=== PATIENT | female | born 1975 | race Caucasian/White ===

== ENCOUNTER 2017-05-09 09:25 | Emergency (ER) | payer BC ==
[2017-05-09 09:35] VITALS: BP 153/81
[2017-05-09] MEDS ORDERED: predniSONE 20 MG Tab PO ONE (11:33)
[2017-05-09] MEDS ORDERED: Albuterol/Ipratropium 3.0-0.5 MG/3 ML Neb Soln NEB ONE (11:33)
--- NOTE | 2017-05-09 11:39 | EDM.PDOC ---
ED HPI GENERAL MEDICAL PROBLEM - General Chief Complaint: Respiratory Problem Stated Complaint: ASTHMA Time Seen by Provider: 05/09/17 11:22 Source of Information: Reports: Patient History Limitations: Reports: No Limitations - History of Present Illness INITIAL COMMENTS - FREE TEXT/NARRATIVE: Patient is a 41-year-old female with a history of asthma presents ED complaining of wheezing, chest tightness, and cough. Patient states she did fighting a cold for the past couple days. States this has only worsen her asthma. She's been utilizing albuterol breathing treatments, numicort, , and also an albuterol rescue inhaler. Symptoms are gradually getting worse. States her kids have had recent cold-like symptoms exposing her. These cold-like symptoms started this past for the patient. This consists of sinus congestion, cough, runny nose, and mild sore throat. There's been no documented fever or chills present. She denies any nausea/vomiting, abdominal pain, dysuria , or any additional complaints. Treatments WATCH ADJUSTER: Reports: Other (see below) Other Treatments WATCH ADJUSTER: albuterol - Related Data Allergies Allergy/AdvReac Type Severity Reaction Status Date / Time cephalexin monohydrate Allergy Hives Verified 05/09/17 09:30 [From Keflex] NSAIDS (Non-Steroidal Allergy Other Verified 05/09/17 09:30 Anti-Inflamma omeprazole Allergy Headache Verified 05/09/17 09:30 peppermint Allergy Hives Verified 05/09/17 09:30 esomeprazole magnesium AdvReac Headache Verified 05/09/17 09:30 [From Nexium] pseudoephedrine HCl AdvReac Irritabilit Verified 05/09/17 09:30 [From Sudafed] y tramadol HCl [From Ultram] AdvReac Headache Verified 05/09/17 09:30 paper tape Allergy Rash Uncoded 05/09/17 09:30 rye Allergy Hives Uncoded 05/09/17 09:30 walnuts Allergy Hives Uncoded 05/09/17 09:30 Home Meds: Home Meds Albuterol Sulfate [Albuterol Sulfate HFA] 2 inh INH Q4HR PRN 04/29/15 [History] Losartan [Cozaar] 100 mg PO DAILY 04/29/15 [History] Montelukast [Singulair] 10 mg PO DAILY 04/29/15 [History] Vits #93/Iron Fum/FA [ Formula Tablet] 1 tab PO BEDTIME [History] buPROPion [Wellbutrin XL] 300 mg PO DAILY 04/29/15 [History] Cyanocobalamin (Vitamin B12) [Vitamin B12] 1,200 mcg PO BEDTIME 07/06/15 [ History] Potassium Gluconate 99 mg PO BEDTIME 07/06/15 [History] Cetirizine [ZyrTEC] 10 mg PO DAILY PRN 05/09/17 [History] Diclofenac Sodium [Voltaren 1% Gel] 0 gm TOP BID PRN 05/09/17 [History] Melatonin 7 mg PO BEDTIME PRN 05/09/17 [History] Pantoprazole [ProTONIX] 40 mg PO Q48H 05/09/17 [History] Prednisone [IMW: predniSONE] 40 mg PO WITHBREAKFAST #10 tab 05/09/17 [Rx] Sertraline [Zoloft] 50 mg PO DAILY 05/09/17 [History] guaiFEN/Phenyleph/Acetaminophn [Tylenol Cold Head Congest Cplt] 1 each PO ONETIME PRN 05/09/17 [History] tiZANidine [Zanaflex] 4 mg PO BEDTIME PRN 05/09/17 [History] Past Medical History - Past Surgical History Other GI Surgeries/Procedures: GASTRIC SLEEVE SURGERY Musculoskeletal Surgical History: Reports: Shoulder Surgery, Other (See Below) Other Musculoskeletal Surgeries/Procedures:: rotator cuff surgery on her right shoulder Social & Family History - Tobacco Use Smoking Status *Q: Never Smoker - Caffeine Use Caffeine Use: Reports: Coffee - Recreational Drug Use Recreational Drug Use: No ED ROS GENERAL - Review of Systems Review Of Systems: See Below Constitutional: Reports: Chills, Malaise, Decreased Appetite. Denies: Fever HEENT: Reports: Sinus Problem, Throat Pain (Mild, improving). Denies: Ear Pain Respiratory: Reports: Shortness of Breath, Wheezing, Cough. Denies: Pleuritic Chest Pain, Sputum, Hemoptysis Cardiovascular: Reports: Dyspnea on Exertion. Denies: Chest Pain, Palpitations , Syncope GI/Abdominal: Reports: No Symptoms : Reports: No Symptoms Musculoskeletal: Reports: No Symptoms Skin: Denies: Rash Neurological: Reports: No Symptoms ED EXAM, GENERAL - Physical Exam Exam: See Below Exam Limited By: No Limitations General Appearance: Alert, WD/WN, Mild Distress Eye Exam: Bilateral Eye: EOMI, PERRL Ears: Normal External Exam, Normal Canal, Hearing Grossly Normal, Normal TMs Nose: Normal Inspection Throat/Mouth: Normal Inspection, Normal Oropharynx, Normal Voice, No Airway Compromise Neck: Normal Inspection, Supple, Non-Tender, Full Range of Motion. No: Lymphadenopathy (L), Lymphadenopathy (R) Respiratory/Chest: No Respiratory Distress, No Accessory Muscle Use, Chest Non- Tender, Wheezing (Throughout) Cardiovascular: Normal Peripheral Pulses, Regular Rate, Rhythm, No Murmur Peripheral Pulses: 2+: Radial (L) GI/Abdominal: Normal Bowel Sounds, Soft, Non-Tender, No Organomegaly, No Distention Back Exam: Normal Inspection Extremities: Normal Inspection Neurological: Alert, Oriented, CN II-XII Intact, Normal Cognition, No Motor/ Sensory Deficits Psychiatric: Normal Affect, Normal Mood Skin Exam: Warm, Dry, Intact, Normal Color Course - Vital Signs Last Recorded V/S: Last Vital Signs Temp 98.6 F 05/09/17 09:30 Pulse 78 05/09/17 13:23 Resp 16 05/09/17 13:23 BP 153/81 H 05/09/17 09:30 Pulse Ox 100 05/09/17 13:23 - Orders/Labs/Meds Orders: Active Orders 24 hr Category Date Time Status RT Aerosol Therapy [RC] ASDIRECTED Care 05/09/17 11:33 Active Labs: Laboratory Tests 05/09/17 05/09/17 Range/Units 11:59 11:59 WBC 6.13 (3.98-10.04) K/mm3 RBC 3.76 L (3.98-5.22) M/mm3 Hgb 9.5 L (11.2-15.7) gm/L Hct 30.9 L (34.1-44.9) % MCV 82.2 (79.4-94.8) fl MCH 25.3 L (25.6-32.2) pg MCHC 30.7 L (32.2-35.5) g/dl RDW Std Deviation 39.8 (36.4-46.3) fL Plt Count 280 (182-369) K/mm3 MPV 9.1 L (9.4-12.3) fl Neut % (Auto) 51.1 (34.0-71.1) % Lymph % (Auto) 40.0 (19.3-51.7) % [place] % (Auto) 7.2 (4.7-12.5) % Eos % (Auto) 1.0 (0.7-5.8) Baso % (Auto) 0.5 (0.1-1.2) % Neut # (Auto) 3.14 (1.56-6.13) K/mm3 Lymph # (Auto) 2.45 (1.18-3.74) K/mm3 [place] # (Auto) 0.44 H (0.24-0.36) K/mm3 Eos # (Auto) 0.06 (0.04-0.36) K/mm3 Baso # (Auto) 0.03 (0.01-0.08) K/mm3 Sodium 142 (136-145) mEq/L Potassium 3.1 L (3.5-5.1) mEq/L Chloride 107 (98-107) mEq/L Carbon Dioxide 28 (21-32) mEq/L Anion Gap 10.1 (5-15) BUN 14 (7-18) mg/dL Creatinine 0.7 (0.55-1.02) mg/dL Est Cr Clr Drug Dosing 97.01 mL/min Estimated GFR (MDRD) > 60 (>60) mL/min BUN/Creatinine Ratio 20.0 H (14-18) Glucose 85 (74-106) mg/dL Calcium 8.3 L (8.5-10.1) mg/dL Total Bilirubin 0.2 (0.2-1.0) mg/dL AST 40 H (15-37) U/L ALT 50 (14-59) U/L Alkaline Phosphatase 47 (46-116) U/L C-Reactive Protein < 0.2 (<1.0) mg/dL Total Protein 6.8 (6.4-8.2) g/dl Albumin 3.7 (3.4-5.0) g/dl Globulin 3.1 gm/dL Albumin/Globulin Ratio 1.2 (1-2) Meds: Medications Discontinued Medications Generic Name Dose Route Start Last Admin Trade Name Freq PRN Reason Stop Dose Admin Albuterol/Ipratropium 3 ml 05/09/17 11:33 05/09/17 12:10 Duoneb 3.0-0.5 Mg/3 Ml NEB 05/09/17 11:34 3 ml ONETIME ONE Administration Prednisone 40 mg 05/09/17 11:33 05/09/17 12:30 Prednisone PO 05/09/17 11:34 40 mg ONETIME ONE Administration - Re-Assessments/Exams Free Text/Narrative Re-Assessment/Exam: Ordered DuoNeb treatment and prednisone 40 mg by mouth. Patient has a history of asthma with recent exacerbation with viral upper respiratory infection. Will obtain CBC, chem 14, CRP, and a chest x-ray two-view. 05/09/17 12:46Labs reviewed: Sodium 142, potassium 3.1, creatinine 0.7, glucose 85, AST mildly elevated at 40, CRP less than 0.2, white blood cell count 6.13, hemoglobin 9.5 with mcv of 82, no neutrophilia present. Chest x-ray: no acute findings noted. Reviewed with . Final interpretation pending. Reassessment, patient's feeling better with be up above therapies. Departure - Departure Time of Disposition: 13:09 Disposition: Home, Self-Care 01 Condition: Good Clinical Impression: Exacerbation of asthma, Viral upper respiratory tract infection with cough - Discharge Information Prescriptions: Prednisone [IMW: predniSONE] 40 mg PO WITHBREAKFAST #10 tab Instructions: Upper Respiratory Infection, Adult, Ulpp-so-[id number], Shortness of Breath, [id number], Asthma, Adult Referrals: Adam Perez MD [Primary Care Provider] - Forms: ED Department Discharge Additional Instructions: Chest x-ray and lab work did not revealing concerning findings. Hemoglobin did indicate you're anemic with 9.5. MCV was mildly low which indicates is most likely iron deficiency anemia. In addition your potassium was low 3.1. Will have you see your PCP in the next week for reevaluation for root cause of anemia. Eat a banana daily to replenish potassium. Take the prednisone as directed. Utilize albuterol inhaler 1-2 puffs every 4 hours as needed for cough and or shortness of breath. Return to ED as needed for any new or worsening symptoms. - My Orders Last 24 Hours: My Active Orders 05/09/17 11:33 RT Aerosol Therapy [RC] ASDIRECTED - Assessment/Plan Last 24 Hours: My Active Orders 05/09/17 11:33 RT Aerosol Therapy [RC] ASDIRECTED
--- NOTE | 2017-05-09 12:43 | CR ---
Chest: Two views of the chest were obtained. Comparison: Previous chest x-ray of 04/29/15. Heart size and mediastinum are normal. Lungs are clear. Bony structures show slight degenerative change within the spine. Impression: 1. Nothing acute is identified on two-view chest x-ray. Diagnostic code #1
== END 2017-05-09 13:23 | disposition home or self-care (01) ==
LOC: JD.ED 09:25
DX: J45.901 Unspecified asthma with (acute) exacerbation (principal); J06.9 Acute upper respiratory infection, unspecified; Z98.890 Other specified postprocedural states; Z79.899 Other long term (current) drug therapy; Z88.5 Allergy status to narcotic agent; Z91.09 Other allergy status, other than to drugs and biological substances; Z88.1 Allergy status to other antibiotic agents; Z88.8 Allergy status to other drugs, medicaments and biological substances
CPT/HCPCS: 36415; 71020; 80053; 85025; 86140; 94664; 99285; A9270; 99283

== ENCOUNTER 2018-01-04 15:53 | Emergency (ER) | payer BC ==
[2018-01-04 16:02] VITALS: BP 150/88
[2018-01-04] MEDS ORDERED: Sodium Chloride 0.9% 10 ML Syringe FLUSH PRN (16:14)
[2018-01-04] MEDS ORDERED: Sodium Chloride 0.9% 1,000 ML IV ONE ×2 (16:15→18:12)
--- NOTE | 2018-01-04 17:49 | CR ---
Chest: Portable view of the chest was obtained. Comparison: Prior chest x-ray of 05/09/17. Heart size and mediastinum are within normal limits for portable technique. Lungs are clear. Bony structures show previous resection of the distal right clavicle. Impression: 1. Incidental finding. Nothing acute is seen on portable chest x-ray. Diagnostic code #2
--- NOTE | 2018-01-04 17:52 | EDM.PDOC ---
ED HPI GENERAL MEDICAL PROBLEM - General Chief Complaint: Syncope Stated Complaint: [facility] Time Seen by Provider: 01/04/18 15:58 Source of Information: Reports: Patient History Limitations: Reports: No Limitations - History of Present Illness INITIAL COMMENTS - FREE TEXT/NARRATIVE: 42 y/o F with episodes of syncope today. States she's been feeling vaguely ill for the past few days with myalgias and malaise. Today had one episode of diarrhea. While getting up from the toilet felt dizzy then passed out. Doesn't know how long she was out for. Texted her who states she then had repeated episodes of passing out when trying to stand up x 2. These episodes were very brief. He said it seemed like she was stiff but didn't have any tonic /clonic movements. Now feels lightheaded and generally weak. No further diarrhea. No vomiting. No abdominal pain. No chest pain. Minimal cough. No SOB. No rhinorrhea/sore throat. No lower extremity pain/swelling. No recent immobilization. No prior history of similar symptoms. - Related Data Allergies Allergy/AdvReac Type Severity Reaction Status Date / Time cephalexin monohydrate Allergy Hives Verified 01/04/18 16:02 [From Keflex] NSAIDS (Non-Steroidal Allergy Other Verified 01/04/18 16:02 Anti-Inflamma omeprazole Allergy Headache Verified 01/04/18 16:02 peppermint Allergy Hives Verified 01/04/18 16:02 esomeprazole magnesium AdvReac Headache Verified 01/04/18 16:02 [From Nexium] pseudoephedrine HCl AdvReac Irritabilit Verified 01/04/18 16:02 [From Sudafed] y tramadol HCl [From Ultram] AdvReac Headache Verified 01/04/18 16:02 paper tape Allergy Rash Uncoded 01/04/18 16:02 rye Allergy Hives Uncoded 01/04/18 16:02 walnuts Allergy Hives Uncoded 01/04/18 16:02 Home Meds: Home Meds Albuterol Sulfate [Albuterol Sulfate HFA] 2 inh INH Q4HR PRN 04/29/15 [History] Losartan [Cozaar] 100 mg PO DAILY 04/29/15 [History] Montelukast [Singulair] 10 mg PO DAILY 04/29/15 [History] Vits #93/Iron Fum/FA [ Formula Tablet] 1 tab PO BEDTIME [History] buPROPion [Wellbutrin XL] 300 mg PO DAILY 04/29/15 [History] Cyanocobalamin (Vitamin B12) [Vitamin B12] 1,200 mcg PO BEDTIME 07/06/15 [ History] Potassium Gluconate 99 mg PO BEDTIME 07/06/15 [History] Cetirizine [ZyrTEC] 10 mg PO DAILY PRN 05/09/17 [History] Melatonin 7 mg PO BEDTIME PRN 05/09/17 [History] Sertraline [Zoloft] 50 mg PO DAILY 05/09/17 [History] Budesonide [Pulmicort] 2 puff IH DAILY 01/04/18 [History] Imitrex. 1 tab PO ASDIRECTED PRN 01/04/18 [History] Past Medical History Cardiovascular History: Reports: Hypertension Respiratory History: Reports: Asthma Neurological History: Reports: Migraines - Past Surgical History GI Surgical History: Reports: Bariatric Procedure Other GI Surgeries/Procedures: GASTRIC SLEEVE SURGERY Musculoskeletal Surgical History: Reports: Shoulder Surgery, Other (See Below) Other Musculoskeletal Surgeries/Procedures:: rotator cuff surgery on her right shoulder Social & Family History - Tobacco Use Smoking Status *Q: Never Smoker - Caffeine Use Caffeine Use: Reports: Coffee - Recreational Drug Use Recreational Drug Use: No ED ROS GENERAL - Review of Systems Review Of Systems: See Below Constitutional: Reports: Malaise, Weakness, Fatigue. Denies: Fever HEENT: Reports: No Symptoms Respiratory: Denies: Pleuritic Chest Pain Cardiovascular: Denies: Chest Pain Endocrine: Reports: Fatigue GI/Abdominal: Reports: Diarrhea. Denies: Abdominal Pain, Vomiting : Denies: Dysuria Musculoskeletal: Denies: Leg Pain Skin: Reports: No Symptoms Neurological: Reports: Dizziness Psychiatric: Reports: No Symptoms Hematologic/Lymphatic: Reports: No Symptoms Immunologic: Reports: No Symptoms - Physical Exam Exam: See Below Exam Limited By: No Limitations General Appearance: Alert, WD/WN, No Apparent Distress Eye Exam: Bilateral Eye: Normal Inspection Ears: Normal External Exam Nose: Normal Inspection Throat/Mouth: Normal Inspection, Normal Oropharynx, Normal Voice, No Airway Compromise Head Exam: Atraumatic, Normocephalic Neck: Normal Inspection, Supple, Non-Tender, Full Range of Motion Respiratory/Chest: No Respiratory Distress, Lungs Clear, Normal Breath Sounds, No Accessory Muscle Use, Chest Non-Tender Cardiovascular: Normal Peripheral Pulses, Regular Rate, Rhythm, No Edema, No Murmur GI/Abdominal: Soft, Non-Tender, No Distention Neuro Exam (Abbreviated): Alert, Oriented, CN II-XII Intact, Normal Cognition, No Motor/Sensory Deficits Back Exam: Normal Inspection. No: CVA Tenderness (L), CVA Tenderness (R) Extremities: Normal Inspection Psychiatric: Normal Affect, Normal Mood Skin Exam: Warm, Dry, Intact, Normal Color, No Rash Course - Vital Signs Last Recorded V/S: Last Vital Signs Temp 36.9 C 01/04/18 15:58 Pulse 82 01/04/18 15:58 Resp 16 01/04/18 15:58 BP 150/88 H 01/04/18 15:58 Pulse Ox 100 01/04/18 15:58 - Orders/Labs/Meds Orders: Active Orders 24 hr Category Date Time Status EKG 12 Lead [EKG Documentation Completion] [RC] STAT Care 01/04/18 16:13 Active Peripheral IV Care [RC] . DIRECTED Care 01/04/18 16:14 Active Peripheral IV Care [RC] . DIRECTED Care 01/04/18 16:14 Active HCG QUALITATIVE,URINE [URCHEM] Stat Lab 01/04/18 18:10 Ordered UA W/MICROSCOPIC [URIN] Stat Lab 01/04/18 18:10 Ordered Peripheral IV Insertion Adult [OM.PC] Routine Oth 01/04/18 16:13 Ordered Labs: Laboratory Tests 01/04/18 01/04/18 01/04/18 Range/Units 17:10 17:10 17:10 WBC 11.77 H (3.98-10.04) K/mm3 RBC 4.80 (3.98-5.22) M/mm3 Hgb 9.8 L (11.2-15.7) gm/L Hct 33.7 L (34.1-44.9) % MCV 70.2 L (79.4-94.8) fl MCH 20.4 L (25.6-32.2) pg MCHC 29.1 L (32.2-35.5) g/dl RDW Std Deviation 40.9 (36.4-46.3) fL Plt Count 391 H (182-369) K/mm3 MPV 9.2 L (9.4-12.3) fl Neut % (Auto) 81.9 H (34.0-71.1) % Lymph % (Auto) 11.0 L (19.3-51.7) % [place] % (Auto) 6.4 (4.7-12.5) % Eos % (Auto) 0.3 L (0.7-5.8) Baso % (Auto) 0.3 (0.1-1.2) % Neut # (Auto) 9.65 H (1.56-6.13) K/mm3 Lymph # (Auto) 1.29 (1.18-3.74) K/mm3 [place] # (Auto) 0.75 H (0.24-0.36) K/mm3 Eos # (Auto) 0.04 (0.04-0.36) K/mm3 Baso # (Auto) 0.03 (0.01-0.08) K/mm3 Manual Slide Review Abnormal smear D-Dimer, Quantitative (0.19-0.59) mg/L Sodium 147 H (136-145) mEq/L Potassium 3.8 (3.5-5.1) mEq/L Chloride 106 (98-107) mEq/L Carbon Dioxide 27 (21-32) mEq/L Anion Gap 17.8 H (5-15) BUN 11 (7-18) mg/dL Creatinine 0.7 (0.55-1.02) mg/dL Est Cr Clr Drug Dosing 97.87 mL/min Estimated GFR (MDRD) > 60 (>60) mL/min BUN/Creatinine Ratio 15.7 (14-18) Glucose 92 (74-106) mg/dL Calcium 9.3 (8.5-10.1) mg/dL Magnesium 1.9 (1.8-2.4) mg/dl Total Bilirubin 0.3 (0.2-1.0) mg/dL AST 24 (15-37) U/L ALT 23 (14-59) U/L Alkaline Phosphatase 62 (46-116) U/L Troponin I 0.025 (0.00-0.056) ng/mL Total Protein 7.9 (6.4-8.2) g/dl Albumin 4.2 (3.4-5.0) g/dl Globulin 3.7 gm/dL Albumin/Globulin Ratio 1.1 (1-2) Urine Color (Yellow) Urine Appearance (Clear) Urine pH (5.0-8.0) Ur Specific [place] (1.005-1.030) Urine Protein (Negative) Urine Glucose (UA) (Negative) Urine Ketones (Negative) Urine Occult Blood (Negative) Urine Nitrite (Negative) Urine Bilirubin (Negative) Urine Urobilinogen (0.2-1.0) Ur Leukocyte Esterase (Negative) Urine RBC (0-5) /hpf Urine WBC (0-5) /hpf Ur Epithelial Cells (0-5) /hpf Urine Bacteria (FEW) /hpf Urine Mucus (FEW) /hpf Urine HCG, Qual (NEGATIVE) 01/04/18 01/04/18 01/04/18 Range/Units 17:10 18:10 18:10 WBC (3.98-10.04) K/mm3 RBC (3.98-5.22) M/mm3 Hgb (11.2-15.7) gm/L Hct (34.1-44.9) % MCV (79.4-94.8) fl MCH (25.6-32.2) pg MCHC (32.2-35.5) g/dl RDW Std Deviation (36.4-46.3) fL Plt Count (182-369) K/mm3 MPV (9.4-12.3) fl Neut % (Auto) (34.0-71.1) % Lymph % (Auto) (19.3-51.7) % [place] % (Auto) (4.7-12.5) % Eos % (Auto) (0.7-5.8) Baso % (Auto) (0.1-1.2) % Neut # (Auto) (1.56-6.13) K/mm3 Lymph # (Auto) (1.18-3.74) K/mm3 [place] # (Auto) (0.24-0.36) K/mm3 Eos # (Auto) (0.04-0.36) K/mm3 Baso # (Auto) (0.01-0.08) K/mm3 Manual Slide Review D-Dimer, Quantitative 0.54 (0.19-0.59) mg/L Sodium (136-145) mEq/L Potassium (3.5-5.1) mEq/L Chloride (98-107) mEq/L Carbon Dioxide (21-32) mEq/L Anion Gap (5-15) BUN (7-18) mg/dL Creatinine (0.55-1.02) mg/dL Est Cr Clr Drug Dosing mL/min Estimated GFR (MDRD) (>60) mL/min BUN/Creatinine Ratio (14-18) Glucose (74-106) mg/dL Calcium (8.5-10.1) mg/dL Magnesium (1.8-2.4) mg/dl Total Bilirubin (0.2-1.0) mg/dL AST (15-37) U/L ALT (14-59) U/L Alkaline Phosphatase (46-116) U/L Troponin I (0.00-0.056) ng/mL Total Protein (6.4-8.2) g/dl Albumin (3.4-5.0) g/dl Globulin gm/dL Albumin/Globulin Ratio (1-2) Urine Color Light yellow (Yellow) Urine Appearance Clear (Clear) Urine pH 7.5 (5.0-8.0) Ur Specific [place] 1.015 (1.005-1.030) Urine Protein Negative (Negative) Urine Glucose (UA) Negative (Negative) Urine Ketones Negative (Negative) Urine Occult Blood Negative (Negative) Urine Nitrite Negative (Negative) Urine Bilirubin Negative (Negative) Urine Urobilinogen 0.2 (0.2-1.0) Ur Leukocyte Esterase Negative (Negative) Urine RBC 0-5 (0-5) /hpf Urine WBC 0-5 (0-5) /hpf Ur Epithelial Cells 0-5 (0-5) /hpf Urine Bacteria Few (FEW) /hpf Urine Mucus Not seen (FEW) /hpf Urine HCG, Qual Negative (NEGATIVE) Meds: Medications Discontinued Medications Generic Name Dose Route Start Last Admin Trade Name Freq PRN Reason Stop Dose Admin Sodium Chloride 1,000 mls @ 1,000 mls/hr 01/04/18 16:15 01/04/18 17:15 Normal Saline IV 01/04/18 17:14 1,000 mls/hr ONETIME ONE Administration Magnesium Sulfate 2 gm/ Premix 50 mls @ 25 mls/hr 01/04/18 17:55 01/04/18 18: 20 IV 01/04/18 19:54 25 mls/hr ONETIME ONE Administration Sodium Chloride 1,000 mls @ 1,000 mls/hr 01/04/18 18:12 01/04/18 18:39 Normal Saline IV 01/04/18 19:11 1,000 mls/hr ONETIME ONE Administration Sodium Chloride 10 ml 01/04/18 16:14 01/04/18 17:15 Saline Flush FLUSH 10 ml ASDIRECTED PRN Administration Keep Vein Open - Re-Assessments/Exams Free Text/Narrative Re-Assessment/Exam: 01/04/18 17:52 EKG shows mildly prolonged QT interval at 506. No significant ST abnormality. CXR shows normal cardiac silhouette, no infiltrate, no acute abnormality. Labs significant for mildly elevated WBC, not anemic, electrolytes OK, trop neg, d-d neg. On reeval looks well and feeling somewhat better here after fluids. No definite explanation for syncopal episode, possible vaso-vagal, possible dehydration component. She has had normal vital signs throughout her ED stay. Discussed need for f/u and return precautions. 01/04/18 18:49 Departure - Departure Time of Disposition: 20:56 Disposition: Home, Self-Care 01 Clinical Impression: Syncope and collapse - Discharge Information Instructions: Syncope, [id number] Referrals: Adam Perez MD [Primary Care Provider] - Forms: ED Department Discharge Additional Instructions: 1. Drink plenty of fluids. Drink pedialyte or gatorade or similar beverage that contains electrolytes. 2. Follow up with your primary doctor next week when able 3. Return to the Emergency Department if you have any new concerning symptoms, such as chest pain, difficulty breathing, severe abdominal pain, or other concerning symptoms - My Orders Last 24 Hours: My Active Orders 01/04/18 16:13 EKG 12 Lead [EKG Documentation Completion] [RC] STAT Peripheral IV Insertion Adult [OM.PC] Routine 01/04/18 16:14 Peripheral IV Care [RC] . DIRECTED Peripheral IV Care [RC] . DIRECTED 01/04/18 18:10 HCG QUALITATIVE,URINE [URCHEM] Stat UA W/MICROSCOPIC [URIN] Stat - Assessment/Plan Last 24 Hours: My Active Orders 01/04/18 16:13 EKG 12 Lead [EKG Documentation Completion] [RC] STAT Peripheral IV Insertion Adult [OM.PC] Routine 01/04/18 16:14 Peripheral IV Care [RC] . DIRECTED Peripheral IV Care [RC] . DIRECTED 01/04/18 18:10 HCG QUALITATIVE,URINE [URCHEM] Stat UA W/MICROSCOPIC [URIN] Stat
[2018-01-04] MEDS ORDERED: Magnesium Sulfate/Water 2 GM in Premix Bag 1 BAG IV ONE (17:55)
== END 2018-01-04 20:35 | disposition home or self-care (01) ==
LOC: JD.ED 15:53
DX: R55 Syncope and collapse (principal); I10 Essential (primary) hypertension; Z88.1 Allergy status to other antibiotic agents; Z88.5 Allergy status to narcotic agent; Z88.8 Allergy status to other drugs, medicaments and biological substances; Z91.018 Allergy to other foods; Z79.899 Other long term (current) drug therapy
CPT/HCPCS: 36415; 71045; 80053; 81001; 81025; 83735; 84484; 85025; 85379; 93005; 96361; 96365; 96366; 99284; J7040; J7050; 93010; J3475

== ENCOUNTER 2018-06-15 15:42 | Emergency (ER) | payer BC ==
[2018-06-15 16:07] VITALS: BP 150/95
[2018-06-15] MEDS ORDERED: diphenhydrAMINE 50 MG/ML SDV IM ONE (17:04)
[2018-06-15] MEDS ORDERED: Promethazine 25 MG/ML SDV IM ONE (17:04)
[2018-06-15] MEDS ORDERED: Ketorolac 60 MG/2 ML SDV IM ONE (17:04)
[2018-06-15] MEDS ORDERED: Haloperidol Lactate 5 MG/ML SDV IM ONE (18:44)
--- NOTE | 2018-06-15 19:02 | EDM.PDOC ---
ED HPI GENERAL MEDICAL PROBLEM - General Chief Complaint: Headache Stated Complaint: MIGRAINE/NUMBNESS IN FACE/NECK PAIN Time Seen by Provider: 06/15/18 17:02 Source of Information: Reports: Patient History Limitations: Reports: No Limitations - History of Present Illness INITIAL COMMENTS - FREE TEXT/NARRATIVE: 42 year old female presents for evaluation and treatment of a migraine. Reports this has been going on for about 6 days. Reports Monday she was vomiting. Monday she developed a headache. Monday she went to the walk-in clinic. She had a CT scan of her head done. Treated with phenergran and troadol. This resolved her migraine. Reports is started again today. States the pain is to the frontal and temporal area. Rates the migraine as an 8/10. Reports the pain is radiating into the right side of her neck. Rates the neck pain as a 7-8/10. Patient reports current symptoms of a migraine headache, neck pain, photophobia , phonophobia, nausea and vomiting. She is also complaining of numbness across her face starting on the right side but moving to the left side. She denies any fevers, chills, cough, sore throat or ear pain. Patient has a past medical history of migraines. She has been prescribed imitrex for her migraines. Reports since the beginning of the year her migraine have become more frequent. Denies any known trigger for her migraines. States she is under more stress. Patient has been taking imitrex and zofran for hte migraines. She has never seen neurology for her migraines. Other than the CT scan on Monday she has never had any imaigng of her head. PCP is Dr. Deal. Headache Pain Score (Numeric/FACES): 8 - Related Data Allergies Allergy/AdvReac Type Severity Reaction Status Date / Time cephalexin monohydrate Allergy Hives Verified 06/15/18 16:07 [From Keflex] NSAIDS (Non-Steroidal Allergy Other Verified 06/15/18 16:07 Anti-Inflamma omeprazole Allergy Headache Verified 06/15/18 16:07 peppermint Allergy Hives Verified 06/15/18 16:07 esomeprazole magnesium AdvReac Headache Verified 06/15/18 16:07 [From Nexium] pseudoephedrine HCl AdvReac Irritabilit Verified 06/15/18 16:07 [From Sudafed] y tramadol HCl [From Ultram] AdvReac Headache Verified 06/15/18 16:07 paper tape Allergy Rash Uncoded 01/04/18 16:02 rye Allergy Hives Uncoded 01/04/18 16:02 walnuts Allergy Hives Uncoded 01/04/18 16:02 Home Meds: Home Meds Albuterol Sulfate [Albuterol Sulfate HFA] 2 inh INH Q4HR PRN 04/29/15 [History] Losartan [Cozaar] 100 mg PO DAILY 04/29/15 [History] Montelukast [Singulair] 10 mg PO DAILY 04/29/15 [History] Vits #93/Iron Fum/FA [ Formula Tablet] 1 tab PO BEDTIME [History] buPROPion [Wellbutrin XL] 300 mg PO DAILY 04/29/15 [History] Cyanocobalamin (Vitamin B12) [Vitamin B12] 1,200 mcg PO BEDTIME 07/06/15 [ History] Potassium Gluconate 99 mg PO BEDTIME 07/06/15 [History] Cetirizine [ZyrTEC] 10 mg PO DAILY PRN 05/09/17 [History] Melatonin 7 mg PO BEDTIME PRN 05/09/17 [History] Sertraline [Zoloft] 50 mg PO DAILY 05/09/17 [History] Budesonide [Pulmicort] 2 puff IH DAILY 01/04/18 [History] Imitrex. 1 tab PO ASDIRECTED PRN 01/04/18 [History] Past Medical History Cardiovascular History: Reports: Hypertension Respiratory History: Reports: Asthma Neurological History: Reports: Migraines Psychiatric History: Reports: Anxiety, Depression - Past Surgical History GI Surgical History: Reports: Bariatric Procedure Other GI Surgeries/Procedures: GASTRIC SLEEVE SURGERY Musculoskeletal Surgical History: Reports: Shoulder Surgery, Other (See Below) Other Musculoskeletal Surgeries/Procedures:: rotator cuff surgery on her right shoulder Social & Family History - Tobacco Use Smoking Status *Q: Never Smoker Second Hand Smoke Exposure: No - Caffeine Use Caffeine Use: Reports: Coffee, Soda - Recreational Drug Use Recreational Drug Use: No ED ROS GENERAL - Review of Systems Review Of Systems: See Below Constitutional: Denies: Fever, Chills HEENT: Reports: Other (reports phonophobia and photophobia). Denies: Ear Pain, Throat Pain Respiratory: Denies: Cough GI/Abdominal: Reports: Nausea, Vomiting Musculoskeletal: Reports: Neck Pain (right sided) Neurological: Reports: Headache, Numbness (face right sided radiating to the left) - Physical Exam Exam: See Below Exam Limited By: No Limitations General Appearance: Alert, WD/WN, No Apparent Distress Eye Exam: Bilateral Eye: EOMI, Normal Inspection, PERRL Ears: Normal External Exam, Normal Canal, Hearing Grossly Normal, Normal TMs Nose: Normal Inspection Throat/Mouth: Normal Inspection, Normal Lips, Normal Oropharynx, Normal Voice, No Airway Compromise Head Exam: Atraumatic, Normocephalic Neck: Normal Inspection, Supple, Non-Tender, Tender Lateral (right over the SCM) . No: Tender Midline Respiratory/Chest: No Respiratory Distress, Lungs Clear, Normal Breath Sounds Cardiovascular: Normal Peripheral Pulses, Regular Rate, Rhythm, No Murmur Neuro Exam (Abbreviated): Alert, Oriented, CN II-XII Intact, Normal Cognition, Normal Gait, Other (reports sensation on the right of the face but states it is decreased on the right comparent to the left; factorer 5/5 bilaterall, dorsiflexion and plantarflexion 5/5 bilaterally) Psychiatric: Normal Affect, Normal Mood Skin Exam: Warm, Dry, Normal Color Course - Vital Signs Last Recorded V/S: Last Vital Signs Temp 98.4 F 06/15/18 16:00 Pulse 71 06/15/18 16:00 Resp 13 06/15/18 16:00 BP 150/95 H 06/15/18 16:00 Pulse Ox 100 06/15/18 16:00 - Orders/Labs/Meds Meds: Medications Discontinued Medications Generic Name Dose Route Start Last Admin Trade Name Freq PRN Reason Stop Dose Admin Diphenhydramine HCl 50 mg 06/15/18 17:04 06/15/18 17:20 Benadryl IM 06/15/18 17:05 50 mg ONETIME ONE Administration Haloperidol Lactate 5 mg 06/15/18 18:44 06/15/18 18:51 Haldol IM 06/15/18 18:45 5 mg ONETIME ONE Administration Ketorolac Tromethamine 60 mg 06/15/18 17:04 06/15/18 17:19 Toradol IM 09/14/18 17:05 60 mg ONETIME ONE Administration Promethazine HCl 25 mg 06/15/18 17:04 06/15/18 17:20 Phenergan IM 06/15/18 17:05 25 mg ONETIME ONE Administration - Re-Assessments/Exams Free Text/Narrative Re-Assessment/Exam: 06/15/18 18:45 Checked on the patient. She reports significant improvement. Rates the pain as a 3/10 at this point. Concerned the migraine may return again. Will follow migraine protocol and give haldol. 06/15/18 19:28 Checked on the patient. She is sleeping at this time. We will discharge her home. Discharge instructions as documented. Departure - Departure Time of Disposition: 19:30 Disposition: Home, Self-Care 01 Condition: Fair Clinical Impression: Migraine - Discharge Information *PRESCRIPTION DRUG MONITORING PROGRAM REVIEWED*: No *COPY OF PRESCRIPTION DRUG MONITORING REPORT IN PATIENT MALGORZATA: No Instructions: Migraine Headache, [id number] Referrals: Adam Perez MD [Primary Care Provider] - Forms: ED Department Discharge Additional Instructions: Rx for Toradol 1 tab every 6-8 hours as needed. #20 given through inst[facility]eds. Rest. Go home and rest in a dark quiet room. Make sure you are drinking plenty of fluids. A continued to use the Imitrex for migraines. You may use Toradol 1 tab every 6 -8 hours as needed for severe migraines not relieved by [id number] Tylenol or Imitrex. It is not recommended that you use Toradol more than 5 days in a row. Recommend follow-up with your primary care provider within 2 weeks for further management of your migraine. Consider making a migraine journal to help identify any possible triggers. Note anything such as whether, diet or any changes in may of caused a migraine free. Please return to the ER for symptoms change or worsen.
== END 2018-06-15 19:45 | disposition home or self-care (01) ==
LOC: JD.ED 15:42
DX: G43.909 Migraine, unspecified, not intractable, without status migrainosus (principal); I10 Essential (primary) hypertension; J45.909 Unspecified asthma, uncomplicated; F41.9 Anxiety disorder, unspecified; F32.9 Major depressive disorder, single episode, unspecified; Z88.8 Allergy status to other drugs, medicaments and biological substances; Z91.018 Allergy to other foods; Z79.899 Other long term (current) drug therapy
CPT/HCPCS: 96372; 99284; J1200; J1630; J1885; J2550

== ENCOUNTER 2018-10-08 08:06 | Emergency (ER) | payer BC ==
[2018-10-08 08:20] VITALS: BP 166/88
[2018-10-08] MEDS ORDERED: Metoclopramide 10 MG/2 ML SDV IVPUSH ONE (08:22)
[2018-10-08] MEDS ORDERED: Dexamethasone 10 MG/ML SDV IVPUSH ONE (08:23)
[2018-10-08] MEDS ORDERED: HYDROmorphone 1 MG/ML Syringe IVPUSH ONE (08:23)
--- NOTE | 2018-10-08 08:29 | EDM.PDOC ---
ED HPI GENERAL MEDICAL PROBLEM - General Chief Complaint: Headache Stated Complaint: HEADACHE Time Seen by Provider: 10/08/18 08:24 Source of Information: Reports: Patient, Family History Limitations: Reports: No Limitations - History of Present Illness INITIAL COMMENTS - FREE TEXT/NARRATIVE: 42-year-old female presents to the ED with diffuse cervical neck pain rating up in the occipital aspect of her head causing a headache. Patient has a lot of migraine headaches. She states she did have a migraine over the weekend. She still has a very stiff sore neck with very limited range of motion this morning. Woke up with this yesterday and is worse this morning. Specific injuries to the cervical spine with slip fall or injury. This is left her mildly nauseated. Pressure at the base of her skull and limited range of motion of her cervical spine. Mild nausea. Onset: Gradual Onset Date: 10/07/18 (Awoke with stiff sore neck yesterday morning worse today) Duration: Day(s):, Constant, Getting Worse Location: Reports: Head (Headache), Neck (Diffuse stiffness of the neck with very limited range of motion.) Quality: Reports: Ache ( Particularly lateral rotation.) Severity: Moderate Improves with: Reports: None Worsens with: Reports: Rest Context: Denies: Activity, Exercise, Lifting, Sick Contact, Trauma, Other Associated Symptoms: Reports: Headaches, Loss of Appetite. Denies: No Other Symptoms, Confusion, Chest Pain, Cough, cough w sputum, Diaphoresis, Fever/ Chills, Malaise, Nausea/Vomiting, Rash, Seizure, Shortness of Breath, Syncope Treatments [employer]: Reports: Other (see below) Headache Pain Score (Numeric/FACES): 7 - Related Data Allergies Allergy/AdvReac Type Severity Reaction Status Date / Time cephalexin monohydrate Allergy Hives Verified 10/08/18 08:16 [From Keflex] NSAIDS (Non-Steroidal Allergy Other Verified 10/08/18 08:16 Anti-Inflamma omeprazole Allergy Headache Verified 10/08/18 08:16 peppermint Allergy Hives Verified 10/08/18 08:16 esomeprazole magnesium AdvReac Headache Verified 10/08/18 08:16 [From Nexium] pseudoephedrine HCl AdvReac Irritabilit Verified 10/08/18 08:16 [From Sudafed] y tramadol HCl [From Ultram] AdvReac Headache Verified 10/08/18 08:16 paper tape Allergy Rash Uncoded 10/08/18 08:16 rye Allergy Hives Uncoded 10/08/18 08:16 walnuts Allergy Hives Uncoded 10/08/18 08:16 Home Meds: Home Meds Albuterol Sulfate [Albuterol Sulfate HFA] 2 inh INH Q4HR PRN 04/29/15 [History] Losartan [Cozaar] 100 mg PO DAILY 04/29/15 [History] Montelukast [Singulair] 10 mg PO DAILY 04/29/15 [History] Vits #93/Iron Fum/FA [ Formula Tablet] 1 tab PO BEDTIME [History] buPROPion [Wellbutrin XL] 300 mg PO DAILY 04/29/15 [History] Cyanocobalamin (Vitamin B12) [Vitamin B12] 1,200 mcg PO BEDTIME 07/06/15 [ History] Potassium Gluconate 99 mg PO BEDTIME 07/06/15 [History] Cetirizine [ZyrTEC] 10 mg PO DAILY PRN 05/09/17 [History] Melatonin 7 mg PO BEDTIME PRN 05/09/17 [History] Sertraline [Zoloft] 50 mg PO DAILY 05/09/17 [History] Budesonide [Pulmicort] 2 puff IH DAILY 01/04/18 [History] Imitrex. 1 tab PO ASDIRECTED PRN 01/04/18 [History] Ferrous Sulfate [Iron] 325 mg PO DAILY 07/26/18 [History] predniSONE [Deltasone] 20 mg PO BID #12 tablet 10/08/18 [Rx] Past Medical History Cardiovascular History: Reports: Hypertension Respiratory History: Reports: Asthma GROUND HAND History: Reports: Neurological History: Reports: Migraines Psychiatric History: Reports: Anxiety, Depression Hematologic History: Reports: B12 Deficiency, Iron Deficiency - Infectious Disease History Infectious Disease History: Reports: Chicken Pox - Past Surgical History GI Surgical History: Reports: Bariatric Procedure Other GI Surgeries/Procedures: GASTRIC SLEEVE SURGERY Musculoskeletal Surgical History: Reports: Shoulder Surgery, Other (See Below) Other Musculoskeletal Surgeries/Procedures:: rotator cuff surgery on her right shoulder Social & Family History - Family History Family Medical History: Noncontributory - Tobacco Use Smoking Status *Q: Never Smoker - Caffeine Use Caffeine Use: Reports: Coffee, Soda - Living Situation & Occupation Living situation: Reports: Occupation: Employed ED ROS GENERAL - Review of Systems Review Of Systems: See Below Constitutional: Reports: Fatigue. Denies: Fever, Chills, Malaise, Weakness HEENT: Reports: No Symptoms Respiratory: Reports: No Symptoms Cardiovascular: Reports: No Symptoms Endocrine: Reports: Fatigue GI/Abdominal: Reports: Nausea : Reports: No Symptoms Musculoskeletal: Reports: Neck Pain, Back Pain. Denies: Shoulder Pain (Diffuse cervical neck pain rating away down to upper thoracic spine bilaterally.), Arm Pain, Hand Pain (Upper back pain.), Leg Pain, Foot Pain, Joint Pain, Joint Swelling Skin: Reports: No Symptoms Neurological: Reports: Headache. Denies: Confusion, Numbness, Pre-Existing Deficit, Tingling, Trouble Speaking, Difficulty Walking, Change in Speech Psychiatric: Reports: No Symptoms Hematologic/Lymphatic: Reports: No Symptoms Immunologic: Reports: No Symptoms - Physical Exam Exam: See Below Exam Limited By: No Limitations General Appearance: Alert, WD/WN, Mild Distress, Other (Very limited range of motion of her cervical spine.) Eye Exam: Bilateral Eye: Normal Inspection, PERRL Throat/Mouth: Normal Inspection, Normal Lips, Normal Oropharynx Head Exam: Atraumatic, Normocephalic. No: Scalp Lacerations, Scalp Swelling, Scalp Ecchymosis, Scalp Hematoma, Scalp Tenderness, Facial Ecchymosis, Facial Lacerations Neck: Normal Inspection, Limited Range of Motion, Tender Lateral (Very tender laterally particularly C5-C6 facet joints bilaterally worse on the left as compared to the right. She has loss of 15 of forward flexion as well as 10 of extension. She has lost 10-12 of lateral rotation bilaterally.) Respiratory/Chest: No Respiratory Distress, Lungs Clear, Normal Breath Sounds, Chest Non-Tender Neuro Exam (Abbreviated): Alert, Oriented, CN II-XII Intact, Normal Cognition, Normal Gait, No Motor/Sensory Deficits Extremities: Normal Inspection, Normal Range of Motion, Non-Tender, No Pedal Edema Skin Exam: Warm, Dry, Intact, Normal Color, No Rash Course - Vital Signs Last Recorded V/S: Last Vital Signs Temp 36.6 C 10/08/18 08:17 Pulse 71 10/08/18 08:17 Resp BP 166/88 H 10/08/18 08:17 Pulse Ox 99 10/08/18 08:17 - Orders/Labs/Meds Orders: Active Orders 24 hr Category Date Time Status Dextrose 5%-0.9% NaCl [Dextrose 5%-Normal Saline] 1,000 Med 10/08/18 08:30 Active ml IV ASDIRECTED Ketorolac [Toradol] Med 10/08/18 08:30 Active 30 mg IVPUSH ONETIME Medication Orders Dextrose/Sodium Chloride (Dextrose 5%-Normal Saline) 1,000 mls @ 500 mls/hr IV ASDIRECTED CASEY Last Admin: 10/08/18 08:40 Dose: 500 mls/hr Ketorolac Tromethamine (Toradol) 30 mg IVPUSH ONETIME CASEY Last Admin: 10/08/18 08:42 Dose: 30 mg Meds: Medications Generic Name Dose Route Start Last Admin Trade Name Freq PRN Reason Stop Dose Admin Dextrose/Sodium Chloride 1,000 mls @ 500 mls/hr 10/08/18 08:30 10/08/18 08:40 Dextrose 5%-Normal Saline IV 500 mls/hr ASDIRECTED CASEY Administration Ketorolac Tromethamine 30 mg 10/08/18 08:30 10/08/18 08:42 Toradol IVPUSH 30 mg ONETIME CASEY Administration Discontinued Medications Generic Name Dose Route Start Last Admin Trade Name Freq PRN Reason Stop Dose Admin Dexamethasone 10 mg 10/08/18 08:23 10/08/18 08:41 Dexamethasone IVPUSH 10/08/18 08:24 10 mg ONETIME ONE Administration Hydromorphone HCl 0.5 mg 10/08/18 08:23 10/08/18 08:42 Dilaudid IVPUSH 10/08/18 08:24 0.5 mg ONETIME ONE Administration Metoclopramide HCl 7.5 mg 10/08/18 08:22 10/08/18 08:41 Reglan IVPUSH 10/08/18 08:23 7.5 mg ONETIME ONE Administration - Radiology Interpretation Free Text/Narrative:: 42-year-old female presents to the ED with diffuse cervical neck pain which is causing a pressure at the base of her skull and headache. It's different than her usual migraines it's precipitated by cervical neck pain with very limited range of motion. Clinically she has facet joint inflammation C5-C6 bilaterally at the base of her cervical spine which is causing her decreased range of motion. This is likely because of the headache as well. Plan IV D5 normal saline at 500 mils an hour. Will be given Dilaudid 0.5 mg IV with Reglan 7.5 mg IV. Toradol 30 mg IV and dexamethasone 10 mg IV. Plan will be to discharge her home on a short course of prednisone 20 mg twice a day for the next 6 days. - Re-Assessments/Exams Free Text/Narrative Re-Assessment/Exam: 10/08/18 09:22 patient is quite drowsy from the medication but the pressure in her head and neck is much improved. I will discharge her to home as she will go home to sleep for a few hours. I'm going to place her on Deltasone 20 mg twice daily for 6 days with the first tablet due at suppertime tonight. This to relieve the inflammation in her cervical spine. Departure - Departure Time of Disposition: 09:22 Disposition: Home, Self-Care 01 Condition: Fair Clinical Impression: Cervical neck pain with evidence of disc disease Headache Qualifiers: Headache type: unspecified Headache chronicity pattern: acute headache Intractability: not intractable Qualified Code(s): R51 - Headache - Discharge Information *PRESCRIPTION DRUG MONITORING PROGRAM REVIEWED*: Not Applicable *COPY OF PRESCRIPTION DRUG MONITORING REPORT IN PATIENT MALGORZATA: Not Applicable Prescriptions: predniSONE [Deltasone] 20 mg PO BID #12 tablet Referrals: Adam Perez MD [Primary Care Provider] - Forms: ED Department Discharge Additional Instructions: Evaluation the emergency room this morning in regards to a lot of pressure sensation in the back of your head originating from the cervical spine. Clinically there is marked paraspinal muscle spasm coming from the lower facet joints in your neck both sides although slightly worse on the left side as compared to the right. This is precipitated a headache with mild nausea. You're treated in the ED with Reglan 7.5 mg and Toradol 30 mg IV for pain and inflammation. Also Dilaudid 0.5 mg IV for pain relief and headache relief. Also dexamethasone 10 mg IV which will start work in 4-6 hours to relieve inflammation in the cervical spine. Prescription written for Deltasone 20 mg tablets these are to be taken twice daily with initial one taken at suppertime tonight. Usually with breakfast and supper for the next 6 days. May still use Motrin as needed for pain and inflammation. First of care physician if not markedly improved in 6 days time - My Orders Last 24 Hours: My Active Orders 10/08/18 08:30 Dextrose 5%-0.9% NaCl [Dextrose 5%-Normal Saline] 1,000 ml IV ASDIRECTED Ketorolac [Toradol] 30 mg IVPUSH ONETIME - Assessment/Plan Last 24 Hours: My Active Orders 10/08/18 08:30 Dextrose 5%-0.9% NaCl [Dextrose 5%-Normal Saline] 1,000 ml IV ASDIRECTED Ketorolac [Toradol] 30 mg IVPUSH ONETIME
[2018-10-08] MEDS ORDERED: Dextrose 5%-0.9% NaCl 1,000 ML IV SCH (08:30)
[2018-10-08] MEDS ORDERED: Ketorolac 30 MG/ML SDV IVPUSH SCH (08:30)
== END 2018-10-08 09:35 | disposition home or self-care (01) ==
LOC: JD.ED 08:06
DX: M50.90 Cervical disc disorder, unspecified, unspecified cervical region (principal); R51 Headache; I10 Essential (primary) hypertension; F41.9 Anxiety disorder, unspecified; F32.9 Major depressive disorder, single episode, unspecified; Z88.1 Allergy status to other antibiotic agents; Z88.5 Allergy status to narcotic agent; Z91.09 Other allergy status, other than to drugs and biological substances; Z91.018 Allergy to other foods; Z79.899 Other long term (current) drug therapy; Z98.84 Bariatric surgery status
CPT/HCPCS: 96361; 96374; 96375; 99284; J1100; J1170; J1885; J2765; J7042

== ENCOUNTER 2019-09-06 21:05 | Emergency (ER) | payer SELFPAY ==
[2019-09-06 21:43] VITALS: BP 165/85; PULSE 62
[2019-09-06] MEDS ORDERED: LORazepam 2 MG/ML SDV IVPUSH ONE (22:00)
[2019-09-06] MEDS ORDERED: diphenhydrAMINE 50 MG/ML SDV IVPUSH ONE (22:00)
[2019-09-06] MEDS ORDERED: Sodium Chloride 0.9% 1,000 ML IV SCH (22:00)
[2019-09-06] MEDS ORDERED: Ondansetron 4 MG/2 ML SDV IVPUSH ONE (22:00)
--- NOTE | 2019-09-06 22:05 | EDM.PDOC ---
ED HPI GENERAL MEDICAL PROBLEM - General Chief Complaint: Headache Stated Complaint: MIGRAINE Time Seen by Provider: 09/06/19 21:38 Source of Information: Reports: Patient History Limitations: Reports: No Limitations - History of Present Illness INITIAL COMMENTS - FREE TEXT/NARRATIVE: Vilma is a 43-year-old female. She is been driving today and had an onset of a scotoma with zaggy lines in her visual hunt. Pain started behind her right eye and is pretty much fine to the right side of her head though at times the left side will hurt as well as she is exposed to bright light or loud noise. She says she has a history of migraine headaches. She takes metoprolol and furicet but it hasn't helped. She has had nausea and vomiting with this. She says these are fairly typical of her migraine type headaches. She comes to the ER for the persistent headache and the nausea and vomiting. She has been trying to drink some fluids but due to the vomiting she can't keep anything down. He denies any recent illnesses no colds no cough no sore throat she denies any musculoskeletal pain. Headache Pain Score (Numeric/FACES): 10 - Related Data Allergies Allergy/AdvReac Type Severity Reaction Status Date / Time cephalexin monohydrate Allergy Hives Verified 09/06/19 21:43 [From Keflex] NSAIDS (Non-Steroidal Allergy Other Verified 09/06/19 21:43 Anti-Inflamma omeprazole Allergy Headache Verified 09/06/19 21:43 peppermint Allergy Hives Verified 09/06/19 21:43 esomeprazole magnesium AdvReac Headache Verified 09/06/19 21:43 [From Nexium] pseudoephedrine HCl AdvReac Irritabilit Verified 09/06/19 21:43 [From Sudafed] y tramadol HCl [From Ultram] AdvReac Headache Verified 09/06/19 21:43 paper tape Allergy Rash Uncoded 10/08/18 08:16 rye Allergy Hives Uncoded 10/08/18 08:16 walnuts Allergy Hives Uncoded 10/08/18 08:16 Home Meds: Home Meds Albuterol Sulfate [Albuterol Sulfate HFA] 2 inh INH Q4HR PRN 04/29/15 [History] Losartan [Cozaar] 100 mg PO DAILY 04/29/15 [History] Montelukast [Singulair] 10 mg PO DAILY 04/29/15 [History] Vits #93/Iron Fum/FA [ Formula Tablet] 1 tab PO BEDTIME [History] buPROPion [Wellbutrin XL] 300 mg PO DAILY 04/29/15 [History] Cyanocobalamin (Vitamin B12) [Vitamin B12] 1,200 mcg PO BEDTIME 07/06/15 [ History] Potassium Gluconate 99 mg PO BEDTIME 07/06/15 [History] Cetirizine [ZyrTEC] 10 mg PO DAILY PRN 05/09/17 [History] Melatonin 7 mg PO BEDTIME PRN 05/09/17 [History] Sertraline [Zoloft] 50 mg PO DAILY 05/09/17 [History] Imitrex. 1 tab PO ASDIRECTED PRN 01/04/18 [History] Ferrous Sulfate [Iron] 325 mg PO DAILY 07/26/18 [History] Past Medical History Cardiovascular History: Reports: Hypertension Respiratory History: Reports: Asthma [employer] History: Reports: Neurological History: Reports: Migraines Psychiatric History: Reports: Anxiety, Depression Hematologic History: Reports: B12 Deficiency, Iron Deficiency - Infectious Disease History Infectious Disease History: Reports: Chicken Pox - Past Surgical History GI Surgical History: Reports: Bariatric Procedure Other GI Surgeries/Procedures: GASTRIC SLEEVE SURGERY Musculoskeletal Surgical History: Reports: Shoulder Surgery, Other (See Below) Other Musculoskeletal Surgeries/Procedures:: rotator cuff surgery on her right shoulder Social & Family History - Family History Family Medical History: Noncontributory - Tobacco Use Smoking Status *Q: Unknown Ever Smoked - Caffeine Use Caffeine Use: Reports: Coffee, Soda - Living Situation & Occupation Living situation: Reports: Occupation: Employed [employer] - Review of Systems Review Of Systems: See Below Constitutional: Denies: Fever, Chills HEENT: Reports: No Symptoms, Other (Photophobia and phonophobia with her migraines) Respiratory: Denies: Shortness of Breath, Wheezing, Cough Cardiovascular: Denies: Chest Pain Endocrine: Reports: No Symptoms GI/Abdominal: Reports: Nausea, Vomiting. Denies: Abdominal Pain, Diarrhea : Reports: Urgency. Denies: Discharge, Dysuria Musculoskeletal: Reports: No Symptoms Skin: Reports: No Symptoms Neurological: Reports: Headache Psychiatric: Reports: No Symptoms Hematologic/Lymphatic: Reports: No Symptoms - Physical Exam Exam: See Below Exam Limited By: No Limitations General Appearance: Alert, WD/WN, Mild Distress Eye Exam: Bilateral Eye: Normal Inspection, Other (Pupils are equal and reactive and there is some mild photophobia noted) Ears: Normal External Exam, Normal Canal, Normal TMs Nose: Normal Inspection Throat/Mouth: Normal Inspection, Normal Lips, Normal Voice, No Airway Compromise Head Exam: Normocephalic Neck: Supple, Other (A she rotates her head from side to side with no complaints of pain, she'll lift her head off the bed with no complaints of pain) Respiratory/Chest: No Respiratory Distress, Lungs Clear, Normal Breath Sounds Cardiovascular: Regular Rate, Rhythm, No Murmur Neuro Exam (Abbreviated): Alert, Oriented, CN II-XII Intact, Normal Cognition, No Motor/Sensory Deficits Back Exam: Full Range of Motion Extremities: Normal Inspection, Normal Range of Motion Psychiatric: Normal Affect, Normal Mood Skin Exam: Warm, Dry Course - Vital Signs Last Recorded V/S: Last Vital Signs Temp 97.6 F 09/06/19 21:40 Pulse 62 09/06/19 21:40 Resp 16 09/06/19 21:40 BP 165/85 H 09/06/19 21:40 Pulse Ox 100 09/06/19 21:40 - Orders/Labs/Meds Orders: Active Orders 24 hr Category Date Time Status Sodium Chloride 0.9% [Normal Saline] 1,000 ml Med 09/06/19 22:00 Active IV ASDIRECTED Medication Orders Sodium Chloride (Normal Saline) 1,000 mls @ 1,000 mls/hr IV ASDIRECTED CASEY Last Admin: 09/06/19 22:26 Dose: 1,000 mls/hr Meds: Medications Generic Name Dose Route Start Last Admin Trade Name Freq PRN Reason Stop Dose Admin Sodium Chloride 1,000 mls @ 1,000 mls/hr 09/06/19 22:00 09/06/19 22:26 Normal Saline IV 1,000 mls/hr ASDIRECTED CASEY Administration Discontinued Medications Generic Name Dose Route Start Last Admin Trade Name Freq PRN Reason Stop Dose Admin Diphenhydramine HCl 50 mg 09/06/19 22:00 09/06/19 22:25 Benadryl IVPUSH 09/06/19 22:01 50 mg ONETIME ONE Administration Lorazepam 0.5 mg 09/06/19 22:00 09/06/19 22:26 Ativan IVPUSH 09/06/19 22:01 0.5 mg ONETIME ONE Administration Ondansetron HCl 4 mg 09/06/19 22:00 09/06/19 22:25 Zofran IVPUSH 09/06/19 22:01 4 mg ONETIME ONE Administration - Re-Assessments/Exams Free Text/Narrative Re-Assessment/Exam: 09/07/19 00:23 The patient states that she is feeling better and she wants to go home. I advised her to go home sleep in a dark room as long she can and take her medications that she has at home if she has a lingering headache in the morning. Departure - Departure Time of Disposition: 00:23 Disposition: Home, Self-Care 01 Condition: Fair Clinical Impression: Nausea and vomiting Qualifiers: Vomiting type: unspecified Vomiting Intractability: non-intractable Qualified Code(s): R11.2 - Nausea with vomiting, unspecified Migraine headache with aura Qualifiers: Status migrainosus presence: without status migrainosus Intractability: not intractable Qualified Code(s): G43.109 - Migraine with aura, not intractable, without status migrainosus - Discharge Information *PRESCRIPTION DRUG MONITORING PROGRAM REVIEWED*: Not Applicable *COPY OF PRESCRIPTION DRUG MONITORING REPORT IN PATIENT MALGORZATA: Not Applicable Instructions: Recurrent Migraine Headache, [id number] Referrals: Adam Perez MD [Primary Care Provider] - Forms: ED Department Discharge, ED Return to Work/School Form Additional Instructions: When you get home make sure the room is dark and sleep as long as you can, take your medications as you have at home to help with the headache if it lingers, continue to drink lots of fluids and take your Zofran that you have at home for nausea, follow up with your doctor later this week for recheck, return to the ER if needed - My Orders Last 24 Hours: My Active Orders 09/06/19 22:00 Sodium Chloride 0.9% [Normal Saline] 1,000 ml IV ASDIRECTED - Assessment/Plan Last 24 Hours: My Active Orders 09/06/19 22:00 Sodium Chloride 0.9% [Normal Saline] 1,000 ml IV ASDIRECTED
== END 2019-09-07 00:37 | disposition home or self-care (01) ==
LOC: JD.ED 21:05
DX: G43.109 Migraine with aura, not intractable, without status migrainosus (principal); R11.2 Nausea with vomiting, unspecified; I10 Essential (primary) hypertension; J45.909 Unspecified asthma, uncomplicated; F41.9 Anxiety disorder, unspecified; F32.9 Major depressive disorder, single episode, unspecified; Z88.8 Allergy status to other drugs, medicaments and biological substances; Z91.048 Other nonmedicinal substance allergy status; Z91.018 Allergy to other foods; Z88.1 Allergy status to other antibiotic agents; Z79.899 Other long term (current) drug therapy
CPT/HCPCS: 96361; 96374; 96375; 99283; J1200; J2060; J2405; J7030; 99284

== ENCOUNTER 2023-03-09 16:48 | Emergency (ER) | payer BC ==
[2023-03-09] MEDS ORDERED: Ketorolac 60 MG/2 ML SDV IM ONE (17:12)
[2023-03-09 18:52] VITALS: BP 170/91; PULSE 86
== END 2023-03-09 18:52 | disposition home or self-care (01) ==
LOC: JD.ED 16:48
DX: M54.41 Lumbago with sciatica, right side (principal); I10 Essential (primary) hypertension; J45.909 Unspecified asthma, uncomplicated; Z88.1 Allergy status to other antibiotic agents; Z88.6 Allergy status to analgesic agent; Z88.8 Allergy status to other drugs, medicaments and biological substances; Z91.018 Allergy to other foods; Z91.048 Other nonmedicinal substance allergy status; Z79.51 Long term (current) use of inhaled steroids; Z79.899 Other long term (current) drug therapy
CPT/HCPCS: 72131; 96372; 99283; J1885

== ENCOUNTER 2024-06-12 15:54 | Emergency (ER) | payer BC, OTHER ==
[2024-06-12 16:48] LABS: BASOPHILS ABSOLUTE AUTO 0.1 K/mm3 (0.0-0.2); BASOPHILS PERCENT AUTO 0.8 % (0.0-1.0); EOSINOPHILS ABSOLUTE AUTO 0.1 K/mm3 (0.0-0.4); EOSINOPHILS PERCENT AUTO 1.2 % (0.0-6.0); HEMATOCRIT 34.3 % (37.0-47.0); HEMOGLOBIN 11.3 gm/dl (12.0-16.0); IMMATURE GRAN ABSOLUTE AUTO 0.01 K/mm3 (0.00-0.05); IMMATURE GRAN PERCENT AUTO 0.2 % (0.0-0.4); LYMPHOCYTES PERCENT AUTO 32.4 % (24.0-44.0); MEAN CORPUSCULAR HEMOGLOBIN 27.5 pg (28.0-32.0); MEAN CORPUSCULAR HGB CONC 32.9 g/dl (32.0-36.0); MEAN CORPUSCULAR VOLUME 83.5 fl (83.0-99.0); MEAN PLATELET VOLUME 8.9 fl (9.4-12.3); MONOCYTES ABSOLUTE AUTO 0.5 K/mm3 (0.0-0.8); NEUTROPHILS ABSOLUTE AUTO 3.4 K/mm3 (1.8-7.7); NEUTROPHILS PERCENT AUTO 56.4 % (41.0-71.0); PLATELET COUNT,PLT 277 K/mm3 (150-400); RED BLOOD CELL COUNT 4.11 M/mm3 (4.10-5.30); WHITE BLOOD CELL COUNT,WBC 6.01 K/mm3 (3.9-11.3)
[2024-06-12] MEDS: Sodium Chloride 0.9% 10 ML Syringe FLUSH PRN (17:10)
[2024-06-12] MEDS: Benzonatate 100 MG Cap PO ONE (17:10)
[2024-06-12] MEDS: Aspirin 81 MG Tab.Chew PO ONE (17:10)
[2024-06-12 17:50] LABS: A/G RATIO 1.4 (1-2); ALBUMIN 3.9 g/dl (3.4-5.0); ANION GAP 15.8 (5-15); BILIRUBIN TOTAL 0.6 mg/dL (0.2-1.0); CALCIUM 8.8 mg/dL (8.5-10.1); CREATININE 0.7 mg/dL (0.55-1.02); EST CRCL DRUG DOSING (CG) 90.01 mL/min; POTASSIUM,K 2.8 mEq/L (3.5-5.1); PROTEIN TOTAL,TP 6.7 g/dl (6.4-8.2)
[2024-06-12 19:09] LABS: CORONAVIRUS COVID-19 NAA NEGATIVE (NEGATIVE); INFLUENZA A NAA NEGATIVE (NEGATIVE); RESPIRATORY SYNCYTIAL VIR NAA NEGATIVE (NEGATIVE)
[2024-06-12] MEDS: Potassium Chloride 20 MEQ Tab.ER PO ONE (19:12)
[2024-06-12] MEDS: Potassium Chloride 10 MEQ in Premix Bag 1 BAG IV SCH (19:13)
[2024-06-12 20:36] LABS: MAGNESIUM 1.9 mg/dL (1.8-2.4)
[2024-06-12] MEDS: Sodium Chloride 0.9% 500 ML ONE (23:09)
[2024-06-13 01:20] VITALS: BP 144/82; PULSE 80
== END 2024-06-13 01:04 | disposition home or self-care (01) ==
LOC: JD.ED 15:54
DX: E87.6 Hypokalemia (principal); I10 Essential (primary) hypertension; Z79.899 Other long term (current) drug therapy; Z91.048 Other nonmedicinal substance allergy status; Z88.1 Allergy status to other antibiotic agents; Z91.018 Allergy to other foods; Z88.6 Allergy status to analgesic agent; Z88.5 Allergy status to narcotic agent; Z88.8 Allergy status to other drugs, medicaments and biological substances
CPT/HCPCS: 0241U; 36415; 71045; 80053; 83690; 83735; 84132; 84484; 84703; 85025; 96365; 96366; 99285; A9270; J3480; J3490; J7040; 93010; 99283